=== PATIENT | female | born 1975 | race Hispanic/Latino ===

== ENCOUNTER 2017-01-12 01:21 | Emergency (ER) | payer OTHER ==
[~2017-01-12] VITALS: Ht 162.6 cm; Wt 61.4 kg
[~2017-01-12 01:21] MED LIST: ASPIRIN 325 MG PO; LORA-302 PO; MELO-253 PO
[2017-01-12 01:24] VITALS: BP 104/78; PULSE 79; RESP 16; O2SAT 100
--- NOTE | 2017-01-12 01:41 | ED.REPORT ---
HPI-Abd Pain F 40 and Over Date of Service Jan 12, 2017 ED Provider: Destiny Craft MD 41 y/o female with history of chronic constipation and ovarian cysts presents to ED with lower abdominal pain that awoke her from sleep this morning. Patient describes the pain as sharp and states that it does not radiate. Pt reports having felt similar pain in the past, when she had a ruptured ovarian cyst. She reports that she is in mid-menstrual cycle and denies any present nausea, vomiting, fever, chills, chance of , or any other symptoms. Patient had some mild nausea last night. Patient also reports having lower back pain, but states that this is a chronic issue. She reports no other medical problems. Nursing Notes Stated Complaint: ABDOMINAL,BACK PAIN Chief Complaint: Female Abdominal Pain Nursing Notes Reviewed: Yes Allergies: Coded Allergies: tramadol (Unverified Adverse Reaction, Severe, INCREASED HEART RATE, ) Scheduled ([Aspirin [address] Po]) 325 MG PO DAILY Meloxicam (Meloxicam) 15 Mg Tablet 15 MG PO DAILY Peg 3350/Na Sulf,Bicarb,Cl/KCl (Peg-3350 and Electrolytes Soln) 4,000 Ml Soln.recon 4,000 ML PO Q10Min Scheduled PRN Lorazepam (Ativan) 0.5 Mg Tablet 0.5 MG PO BID PRN PRN For Anxiety General Time Seen by MD: 01:40 Chief Complaint Abdominal pain Hx Obtained From: Patient Arrived By: Walk-in Sudden in Onset?: Yes Onset Occurred: 1 - 4 hours ago Context of Onset: Mid menstrual cycle, Sleeping (Patient was woken from sleep by pain.) Symptom Duration: Since onset Progression since Onset: Constant Location: : Abdomen lower Quality: Painful, Sharp Radiation: : Does not radiate Severity: Current: Moderate Severity: Maximum: Moderate Recent Healthcare: No recent doctor visit, No recent hospitalization Similar Sx Previous: Yes Past Medical History Past Medical History Notes: No PCP, patient recently moved back to [facility]. Past Medical History Thyroid Nodule. Diagnosed with Ovarian Cyst in Past ED visit. Dyspnea. TIA (PARESTHESIA OF ARM,FACIAL NUMBNESS-RESOLVED). Kidney Stones. Reports: Asthma (Childhood Asthma.) Past Surgical History leg surgery Reports: Cholecystectomy Reports: Tubal ligation Family History noncontributory Smoking History Never Smoker Social History Alcohol Use: 1-3 per week Drug Use: Denies drug use Other Social History: Good social support, Local resident Ambulatory Status Independent Review of Systems Constitutional: Denies: Chills, Fever GI: Reports: Abdominal pain, Denies: Nausea, Vomiting Female: Denies: , Vaginal bleeding - abnl Musculoskeletal: Reports: Back pain Complete sys rev & neg: except as marked. Physical Exam Physical Exam Notes: Bedside Ultrasound: No free fluid. Uterus appears enlarged, but there are no ovarian cysts seen. Vital Signs Vital Signs (First) Date Time Temp Pulse Resp B/P Pulse Ox O2 Delivery O2 Flow Rate FiO2 01/12/17 01:24 36.2 79 16 104/78 100 Room Air Initial VS: Reviewed, Vital signs normal Psychiatric: Mood/affect normal, Behavior normal, Normal thought content General/Constitutional: Awake, Alert, Well developed Respiratory / Chest: Atraumatic, Breath sounds NL, Breath sounds = bilat, No respiratory distress, No rales, No rhonchi, No wheezing Cardiovascular: Heart rate NL, Regular rhythm, Heart sounds NL, No gallop, No murmurs, No rubs Abdomen: Atraumatic, Soft, No guarding, No palpable mass Tenderness/Guarding/Rebound: Positive: Tender suprapubic (Diffuse abdominal pain with worst in suprapubic area.) Back: Full range of motion, No CVA tenderness Head / Eyes: Atraumatic, Normocephalic, PERRL, EOMI ENT: Atraumatic, No trismus Skin: Warm, Dry Neurologic: Oriented X3, Speech NL, No sensory deficits Neck: Atraumatic, Full range of motion Upper Extremity / MS: Atraumatic, Full range of motion Lower Extremity / Pelvis / MS: Atraumatic, Full range of motion Interpretation & Diagnostics Lab Results Interpretation Result Diagram: 01/12/17 0205 01/12/17 0205 Test 01/12/17 02:00 01/12/17 02:05 Hold Urine Received (Received) White Blood Count 4.1th/mm3 (3.8-10.1) Red Blood Count 4.07mil/mm3 (3.90-5.20) Hemoglobin 12.0g/dL (12.0-15.6) Hematocrit 35.7% (35.0-46.0) Mean Corpuscular Volume 87.7fL (81-100) Mean Corpuscular Hemoglobin 29.5pg (27.0-35.0) Mean Corpuscular Hemoglobin Concent 33.6% (32.0-37.0) Red Cell Distribution Width 13.6% (12.3-15.4) Platelet Count 268bil/L (150-400) Neutrophils (%) (Auto) 37.7% (40-74) Lymphocytes (%) (Auto) 46.6% (14-46) Monocytes (%) (Auto) 13.2% (4-12) Eosinophils (%) (Auto) 2.0% (0-5) Basophils (%) (Auto) 0.5% (0-3) Sodium Level 135mEq/L (134-144) Potassium Level 3.6mEq/L (3.5-5.2) Chloride Level 99mEq/L (97-108) Carbon Dioxide Level 26mmol/L (18-29) Blood Urea Nitrogen 16mg/dL (6-24) Creatinine 0.69mg/dL (0.57-1.00) Estimat Glomerular Filtration Rate 135mL/min (>59) Glucose Level 105mg/dL (60-99) Calcium Level 9.1mg/dL (8.5-10.1) Total Bilirubin 0.3mg/dL (0.0-1.2) Aspartate Amino Transf (AST/SGOT) 31U/L (0-50) Alanine Aminotransferase (ALT/SGPT) 22U/L (0-32) Alkaline Phosphatase 47U/L (25-150) Total Protein 6.9g/dL (6.4-8.4) Albumin 3.9g/dL (3.4-5.0) Hold Rose Top Tube Received (Received) X-Ray Abdominal Interpretation IMPRESSION: Large ammount of stool in the colon. Non- specific bowel gas pattern. No free air. Interpretation / Wet Read by: Wet read ED physician Re-Eval/Medical Decision Med Decision/Clinical Course The patient has generalized pain but it is worse in the suprapubic area, she states it reminds her of a ruptured ovarian cyst. She may indeed have a ruptured cyst but that would not explain her upper abdominal pain. She does not have any other symptoms this time, she has chronic constipation. I did place ultrasound on her abdomen did not see any free fluid, the patient is improved after pain medications. Partial list of differential diagnoses considered were gastroenteritis, bowel obstruction, ruptured viscus, ruptured ovarian cyst, constipation, renal colic, pyelonephritis, ectopic , diverticulitis, and appendicitis. I discussed treatment options for her constipation and she chose GoLYTELY. As far as her suprapubic pain, it may indeed be a cyst but there is no significant fluid collection and the patient can call her doctor for ultrasound of her symptoms continue. Source of Hx: Old records Re-Evaluation/Progress : Time of Eval: 02:32 Patient Status: Condition improved Re-Evaluation/Progress Note: Rechecked with patient to perform ultrasound on abdomen. Ulstrasound revealed no free fluid. Uterus appears enlarged. Did not detect any ovarian cysts. Discussed lab results and x-ray, with constipation likely the underlying reason for her pain. Patient understands and agrees with the plan to be discharged home. Discharge instructions and follow-up discussed. All questions were addressed. Return to the ED warnings given. Counseled Regarding: Diagnosis, Lab results, Need for follow-up, When/why to return to ED Discharge & Departure Primary Impression: Suprapubic abdominal pain Additional Impression: Constipation Constipation type: unspecified constipation type Qualified Code: K59.00 - Constipation, unspecified Disposition: Home Discharge Condition All VS Reviewed: Yes Condition: Stable Patient Instructions: Constipation (ED) Additional Instructions: Call your hyperion essbase developer tomorrow to schedule a follow up in order to receive a possible ultrasound to evaluate for ovarian cysts. Start taking the Golytely tomorrow and wait till you have 4 or 5 large bowel movements before you stop using the Golytely. Seek care for increasing pain, fever, vomiting, or any other new or concerning symptoms. Referrals: Jose Luis Munoz MD (PCP) Scribe Attestation Portions of this note were transcribed by Twan Jones and Latia Clements. I, Dr. Craft personally performed the history, physical exam and medical decision- making; I reviewed and confirmed the accuracy of the information in the transcribed note. Signed by: Twan Jones and Levi Pandey, 01/12/2017 and 0251. copies to: Jose Luis Busby MD, Jena M MD Jan 12, 2017 01:41 Twan Jones Jan 12, 2017 01:58 Latia Clements Jan 12, 2017 02:51
[2017-01-12] MEDS ORDERED: HYDROmorphone 0.5 mg/0.5 mL iSecure Syringe IM ONE (01:50)
[2017-01-12 02:13] LABS: BASOPHILS % (AUTO) 0.5 % (0-3); MONOCYTES % (AUTO) 13.2 % (4-12); Mean Corpuscular Hemoglobin 29.5 pg (27.0-35.0); Mean Corpuscular Volume 87.7 fL (81-100); NEUTROPHILS % (AUTO) 37.7 % (40-74); Platelet Count 268 bil/L (150-400)
[2017-01-12] MEDS ORDERED: PEG4000S3 PO (02:42)
[2017-01-12 03:02] VITALS: PULSE 71; RESP 16; O2SAT 99
--- NOTE | 2017-01-12 08:39 | DRSVH ---
PROCEDURE: X-RAY ACUTE ABDOMINAL SERIES ([id number]) INDICATIONS: sudden general abdominal pain TECHNIQUE: One view chest and two views of the abdomen were acquired. COMPARISON: None. FINDINGS: Surgical changes and devices: Cholecystectomy clips. Chest: Lungs are clear. Heart size is normal. No pleural effusions. No pneumoperitoneum. Abdomen: Bowel gas pattern is normal. No suspicious calcifications. Visualized solid organ contour s appear normal. Bones: No suspicious bony lesions. Remote bilateral obturator ring fractures present. IMPRESSION: Moderate amount of colonic stool present. No obstruction. Dictated by: Juan Jose Murillo Loida Interpreted: Narayan Bey MD on 01/12/2017 at 8:37 Transcribed by: ELVIRA on 01/12/2017 at 8:38 Approved by: Narayan Bey M.D. on 01/12/2017 at 9:02
== END 2017-01-12 03:02 | disposition home or self-care (01) ==
LOC: SED 01:21
DX: R10.30 Lower abdominal pain, unspecified (principal); K59.00 Constipation, unspecified; M54.5 Low back pain; J45.909 Unspecified asthma, uncomplicated; Z86.73 Personal history of transient ischemic attack (TIA), and cerebral infarction without residual deficits; Z90.49 Acquired absence of other specified parts of digestive tract; Z79.82 Long term (current) use of aspirin; Z88.5 Allergy status to narcotic agent
CPT/HCPCS: 36415; 74022; 80053; 81025; 85025; 96372; 99285; J1170

== ENCOUNTER → 2017-08-02 | Day surgery (SDC) | payer OTHER ==
[~2017-08-02] VITALS: Ht 162.6 cm; Wt 60.0 kg
[~2017-08-02] MED LIST changes: -ASPIRIN 325 MG PO; -LORA-302 PO; -MELO-253 PO; +ZOLP5TAB6 PO; +fentaNYL-PF 50 mCg/mL 2 mL Inj IVPUSH PRN
[2017-08-02 13:56] VITALS: BP 127/90; PULSE 83; RESP 16; O2SAT 100
[2017-08-02 15:33] VITALS: BP 116/64; PULSE 72; RESP 14; O2SAT 96
[2017-08-02 15:43] VITALS: BP 101/68; PULSE 75; RESP 14; O2SAT 99
[2017-08-02 15:53] VITALS: BP 106/71; PULSE 75; RESP 14; O2SAT 100
[2017-08-02 16:03] VITALS: BP 113/75; PULSE 77; RESP 14; O2SAT 96
--- NOTE | 2017-08-15 00:26 | ENDO ---
[address] [address] ENDOSCOPY PROCEDURE PATIENT: SUSANNE SANTOS : 1975 MR#: [id number] ADMIT: 08/02/2017 JOB ID: [id number] DATE OF PROCEDURE: 08/02/2017 PREOPERATIVE DIAGNOSIS(ES): Hematochezia. POSTOPERATIVE DIAGNOSIS(ES): Hematochezia associated with hemorrhoids. PROCEDURE PERFORMED: Colonoscopy. SURGEON: Dee Stinson MD. HISTORY OF PRESENT ILLNESS: This is a 42-year-old woman who presented to my office with hematochezia, possibly secondary to hemorrhoids. Colonoscopy was recommended to rule out additional sources of hematochezia. FINDINGS: Normal colonoscopy to the terminal ileum. MEDICATIONS: Versed 11 mg, fentanyl 225 mcg. Due to the high dosing, anesthesia is recommended for future colonoscopies. PREPARATION: Good. WITHDRAWAL TIME: 16 minutes. DESCRIPTION OF PROCEDURE: The patient was brought to the procedure suite and placed in left lower decubitus position. A procedural pause was performed. Digital rectal examination was performed and was normal with exception of small hemorrhoids. The colonoscope was inserted and advanced to the distal terminal ileum. The entire colon, including distal terminal ileum, was normal. The scope was withdrawn slowly over the course of 16 minutes, with care taken to visualize to all of the mucosa. Retroflex examination of the rectum revealed internal hemorrhoids. The colonoscope was removed. The patient tolerated the procedure well. COMPLICATIONS: None. ESTIMATED BLOOD LOSS: None. SPECIMENS: None.
== END | disposition home or self-care (01) ==
LOC: END 00:34
PROVIDERS: ATTEND Surgery
DX: K92.1 Melena (principal); K64.2 Third degree hemorrhoids; F41.9 Anxiety disorder, unspecified; Z79.82 Long term (current) use of aspirin
CPT/HCPCS: 45378; 99152; 99153; J2250; J3010; J7030